=== PATIENT | female | born 1935 | race Caucasian/White ===

== ENCOUNTER 2017-08-20 16:30 | Inpatient (IN) | payer MEDICARE, OTHER ==
[~2017-08-20] VITALS: Ht 152.4 cm; Wt 85.0 kg
[~2017-08-20 16:30] MED LIST: ALBUTEROL INHALER; AMIODARONE HCL200 MG PO; ARED 2 PO; ASPIRIN81 M1 PO; CARVEDILOL12.5 MG PO; DIGOXIN250 MCG PO; FUROSEMIDE40 MG PO; HYDROCODON-ACE1 EA11 PO; HYDROCODON-ACE1 EAC4; KLOR-CON 88 MEQ PO; LACTULOSE20 GM/30 M PO; LEVEMIR 3M100 UNITS/ SQ; LEVOTHYROXINE50 MCG PO; LOSARTAN POTASS25 MG PO; MONTELUKAST SOD10 MG PO; NEXIUM; NYSTATIN TOP; RANITIDINE HCL150 MG PO; SINGULAIR10 MG PO; ULTRAM 50MG50 MG PO; VIT D PO; VOLTAREN; VOLTAREN GEL; WARFARIN SODIUM2 MG PO
[2017-08-20] MEDS ORDERED: ALBUTEROL/IPRATROPIUM 3 ML NEB NEB ONE (17:15)
[2017-08-20 17:18] LABS: BASOPHILS % 0.2 % (0.0-1.0); EOSINOPHILS % 0.1 % (0.0-6.0); HEMATOCRIT 40.4 % (34.2-44.1); HEMOGLOBIN 12.6 g/dL (12.0-16.0); INR 1.71; LYMPHOCYTES # (AUTO) 0.8 (1.0-3.2); LYMPHOCYTES % 10.2 % (18.0-39.1); MEAN CORPUSCULAR HEMOGLOBIN 30.7 pg (28-32); MEAN CORPUSCULAR HGB CONC 31.2 g/dL (31-35); MEAN CORPUSCULAR VOLUME 98.3 fL (81-99); MONOCYTES # (AUTO) 0.8 (0.2-0.8); MONOCYTES % 9.2 % (4.4-11.3); NEUTROPHILS # (AUTO) 6.6 (2.1-6.9); NEUTROPHILS % 79.9 % (38.7-80.0); PLATELET COUNT 96 x10e3/uL (140-360); RED BLOOD COUNT 4.11 x10e6/uL (3.6-5.1); RED CELL DISTRIBUTION WIDTH 13.4 % (11.7-14.4)
[2017-08-20 17:19] LABS: PARTIAL THROMBOPLASTIN TIME 30.5 seconds (23.8-35.5)
[2017-08-20 17:28] LABS: ALBUMIN 3.2 g/dL (3.5-5.0); ALBUMIN/GLOBULIN RATIO 0.7 (0.8-2.0); ANION GAP 15.1 mmol/L (8-16); CALCIUM 10.6 mg/dL (8.4-10.2); CREATININE, SERUM 1.22 mg/dL (0.57-1.11); POTASSIUM 4.1 mmol/L (3.5-5.1)
[2017-08-20 17:35] LABS: CREATINE KINASE MB 1.1 ng/mL (0.00-5.00); TROPONIN I 0.033 ng/mL (0-0.300)
[2017-08-20 18:23] LABS: BILIRUBIN,URINE 1+ (NEGATIVE); KETONES,URINE NEGATIVE (NEGATIVE); LEUKOCYTE ESTERASE ,URINE TRACE (NEGATIVE); NITRITE,URINE NEGATIVE (NEGATIVE); URINE UROBILINOGEN 8 mg/dL (0.2 - 1)
[2017-08-20 18:25] LABS: PROTEIN,URINE DIPSTICK 1+ (NEGATIVE)
[2017-08-20 18:26] LABS: CLARITY,URINE SL CLOUDY (CLEAR); COLOR,URINE YELLOW (YELLOW)
[2017-08-20 18:47] LABS: EPITHELIAL CELLS,URINE RARE /LPF; RBC,URINE 0-5 /HPF (0-5)
[2017-08-20] MEDS ORDERED: PRESERVISION A1 EACH PO (18:51)
[2017-08-20] MEDS ORDERED: D3 PO (18:51)
--- NOTE | 2017-08-20 18:59 | Diagnostic Imaging Report ---
Portable chest x-ray CPT code 36717 INDICATION: Altered level of consciousness COMPARISON: 09/25/2012 FINDINGS: Frontal view of the chest obtained at 1614 hours. The cardiac silhouette is enlarged and contains pacer/defibrillator wires. The heart is increased in size compared to previous exam. The hardware is stable in position. The aorta is ectatic with calcifications in the arch. The main pulmonary artery is enlarged. Intrapulmonary vasculature is prominent. The lungs demonstrate diffuse hyperinflation. No mass or infiltrate. The costophrenic angles are sharp. There is no pneumothorax. The osseous structures are intact and normal in morphology. IMPRESSION: 1. Increasing cardiomegaly and pacer/defibrillator. Pericardial effusion cannot be excluded. 2. Enlarged main pulmonary artery suggestive of pulmonary artery hypertension. This may account for the central pulmonary vascular congestion. 3. COPD. No acute pulmonary process. Signed by: Dr. Praveen Fong MD on 08/20/2017 6:55 PM
--- NOTE | 2017-08-20 19:11 | Diagnostic Imaging Report ---
Examination: CT BRAIN WITHOUT CONTRAST History:Confusion; altered mental status. Comparison studies:None Technique: Axial images were obtained from the skull base to the vertex. Coronal and sagittal images reconstructed from the axial data. Intravenous contrast: None Findings: Scalp: No abnormalities. Bones: No fractures, blastic or lytic lesions. Brain sulci: Appropriate for age. Ventricles: Normal in size and configuration. No hydrocephalus. Extra-axial space: No abnormalities. Parenchyma: There are mild confluent areas of hypoattenuation in the periventricular and subcortical white matter, nonspecific. No masses, hemorrhage, or acute cortical based vascular insults. Sellar/suprasellar region: No abnormalities. Craniocervical junction: Patent foramen magnum. No Chiari one malformation. Incidental findings: Chronic left maxillary sinusitis. Impression: 1. No acute intracranial abnormalities. 2. Mild chronic microvascular ischemic change. Signed by: Dr. Cass Bunn M.D. on 08/20/2017 7:07 PM
[2017-08-20] MEDS ORDERED: ONDANSETRON HCL INJ 2 MG/ML VIAL IV PRN (20:45)
[2017-08-20] MEDS ORDERED: ACETAMINOPHEN 325 MG TAB PO PRN (20:45)
[2017-08-20 22:00] VITALS: BP 129/80
[2017-08-20 23:02] VITALS: BP 129/80
[2017-08-21] VITALS: BP 126/67
[2017-08-21 04:00] VITALS: BP 122/68
[2017-08-21 06:27] LABS: BASOPHILS % 0.3 % (0.0-1.0); EOSINOPHILS % 0.5 % (0.0-6.0); HEMATOCRIT 38.2 % (34.2-44.1); HEMOGLOBIN 11.9 g/dL (12.0-16.0); LYMPHOCYTES # (AUTO) 1.3 (1.0-3.2); LYMPHOCYTES % 20.2 % (18.0-39.1); MEAN CORPUSCULAR HEMOGLOBIN 30.8 pg (28-32); MEAN CORPUSCULAR HGB CONC 31.2 g/dL (31-35); MONOCYTES # (AUTO) 0.7 (0.2-0.8); MONOCYTES % 11.4 % (4.4-11.3); NEUTROPHILS # (AUTO) 4.4 (2.1-6.9); NEUTROPHILS % 67.3 % (38.7-80.0); PLATELET COUNT 91 x10e3/uL (140-360); RED BLOOD COUNT 3.86 x10e6/uL (3.6-5.1); RED CELL DISTRIBUTION WIDTH 13.4 % (11.7-14.4)
[2017-08-21 07:11] LABS: CREATINE KINASE MB 1.2 ng/mL (0.00-5.00); TROPONIN I 0.037 ng/mL (0-0.300)
[2017-08-21 07:42] VITALS: BP 129/78
[2017-08-21 07:42] LABS: ALBUMIN/GLOBULIN RATIO 0.7 (0.8-2.0); ANION GAP 10.3 mmol/L (8-16); CALCIUM 10.6 mg/dL (8.4-10.2); CHOL/HDL RATIO 4.9 (3.0-3.6); CREATININE, SERUM 1.2 mg/dL (0.57-1.11); POTASSIUM 4.3 mmol/L (3.5-5.1)
[2017-08-21 11:45] VITALS: BP 139/79
[2017-08-21] MEDS ORDERED: DEXTROSE 50% SYRINGE 50 ML IV PRN (15:15)
[2017-08-21 15:20] LABS: CREATINE KINASE MB 1.3 ng/mL (0.00-5.00)
[2017-08-21 15:23] LABS: TROPONIN I 0.029 ng/mL (0-0.300)
--- NOTE | 2017-08-21 15:51 | History and Physical ---
CHIEF COMPLAINT: Ms. Mary is a very elderly 81-year-old woman known to us for many years, who presents to the emergency room with complaints of failure to thrive. HISTORY OF PRESENT ILLNESS: The patient reports that she has been unable to eat and drink and became worried about herself. She adds that her son had coronary bypass graft surgery recently, has not been able to help her. PAST MEDICAL HISTORY: Long and complex with ischemic cardiomyopathy. Last echocardiogram in our records December 26, 2016, showed EF 20% to 25%. She has an AICD in place with history of ventricular tachycardia. She had right-sided breast cancer in 1997, remote hysterectomy, glaucoma, sleep apnea, gastric ulcer, cirrhosis with hepatic encephalopathy, COPD, hyperparathyroidism. She has chronic renal insufficiency. PAST SURGICAL HISTORY: Previous laparoscopic cholecystectomy, right-sided lumpectomy for breast cancer, hysterectomy. AICD was placed in 2010, last interrogated in April 2017. HOME MEDICATIONS INCLUDE: Multivitamin. Levothyroxine 50 mcg daily. Carvedilol 12.5 mg b.i.d. Flovent inhaler. Furosemide 40 mg daily. Levemir FlexPen 40 units in the morning and 30 units in the evening. Nystatin. Warfarin 2 mg daily. PHYSICAL EXAMINATION: GENERAL: At this time shows an elderly obese white woman who is awake. Words are difficult to ascertain due to mumbling and perhaps some slight confusion. HEENT: Unremarkable except for poor dentition. NECK: Is thick. THORAX: Heart sounds S1 and S2 are equal and regular. There is a 2/6 systolic murmur. Defibrillator site is intact. ABDOMEN: Protuberant. EXTREMITIES: Show multiple contusions and bandaging. INITIAL LABORATORY STUDIES: Show troponins normal times 2. BUN 33, creatinine 1.2. INR 1.7. Chest x-ray shows cardiomegaly. CAT scan of the head shows sinusitis. EKG shows paced rhythm. Current serum ammonia is 88, which is normal in this laboratory. ASSESSMENT: 1. Congestive heart failure. 2. Renal insufficiency. 3. Failure to thrive. 4. Hepatic encephalopathy. PLAN: Will reevaluate and provide supportive care. She may need mcc or other management. Job#: [id number] EV
[2017-08-21] MEDS: CARVEDILOL 12.5 MG TAB PO SCH (17:38)
[2017-08-21] MEDS: INSULIN REGULAR, HUMAN 100 UNIT/1 ML 3ML VIAL SQ SCH ×2 (17:39→21:29)
[2017-08-21] MEDS: WARFARIN SOD 2 MG TAB PO SCH (17:39)
[2017-08-21 20:45] VITALS: BP 111/58
[2017-08-22] VITALS (8 sets, daily range): BP systolic 101–126; BP diastolic 52–66
[2017-08-22] MEDS: LEVOTHYROXINE SODIUM 50 MCG TAB PO SCH (05:31)
[2017-08-22 07:26] LABS: B-TYPE NATRIURETIC PEPTIDE2 1785.7 pg/mL (0-100)
[2017-08-22] MEDS: INSULIN REGULAR, HUMAN 100 UNIT/1 ML 3ML VIAL SQ SCH ×4 (07:30→20:55)
[2017-08-22 07:31] LABS: ANION GAP 11.7 mmol/L (8-16); CALCIUM 10.7 mg/dL (8.4-10.2); CREATININE, SERUM 1.56 mg/dL (0.57-1.11); POTASSIUM 4.7 mmol/L (3.5-5.1)
[2017-08-22] MEDS: FUROSEMIDE 40 MG TAB PO SCH (08:39)
[2017-08-22] MEDS: LACTULOSE SYRUP 20 GM/30 ML UDC PO SCH (08:39)
[2017-08-22] MEDS: CARVEDILOL 12.5 MG TAB PO SCH ×2 (08:39→16:31)
[2017-08-22] MEDS ORDERED: METOLAZONE 5 MG TAB PO ONE (10:00)
[2017-08-22] MEDS ORDERED: METOLAZONE 5 MG TAB PO SCH (13:30)
[2017-08-22] MEDS: WARFARIN SOD 2 MG TAB PO SCH (16:37)
[2017-08-22] MEDS ORDERED: RISPERIDONE 0.5 MG TAB PO ONE (20:30)
[2017-08-23] VITALS (7 sets, daily range): BP systolic 106–143; BP diastolic 58–72
[2017-08-23] MEDS: LEVOTHYROXINE SODIUM 50 MCG TAB PO SCH (06:28)
[2017-08-23] MEDS: INSULIN REGULAR, HUMAN 100 UNIT/1 ML 3ML VIAL SQ SCH ×4 (07:30→22:02)
[2017-08-23 08:09] LABS: ALBUMIN 2.8 g/dL (3.5-5.0); ALBUMIN/GLOBULIN RATIO 0.6 (0.8-2.0); ANION GAP 12.9 mmol/L (8-16); CALCIUM 10.5 mg/dL (8.4-10.2); CREATININE, SERUM 1.64 mg/dL (0.57-1.11); POTASSIUM 3.9 mmol/L (3.5-5.1)
[2017-08-23] MEDS: FUROSEMIDE 40 MG TAB PO SCH (09:53)
[2017-08-23] MEDS: CARVEDILOL 12.5 MG TAB PO SCH ×3 (09:53→22:01)
[2017-08-23] MEDS: LACTULOSE SYRUP 20 GM/30 ML UDC PO SCH (09:53)
--- NOTE | 2017-08-23 11:03 | Cardiology Report ---
DATE OF STUDY: ECHOCARDIOGRAM M-MODE: Top normal left atrial size. Left ventricular hypertrophy. Top normal left ventricular size. Diminished left ventricular contractility. Normal mitral and aortic valves. Pacemaker. No pericardial effusion. SECTOR SCAN: Normal chamber and wall dimensions. Borderline enlarged left atrium and left ventricle. Left ventricular hypertrophy. Diminished left ventricular contractility. Ejection fraction 20% to 25%. Mitral valve slightly sclerotic. Aortic valve is normal. Tricuspid valves are normal. There is minimal posterior pericardial effusion. Pacemaker is present. CARDIAC DOPPLER STUDY WITH COLOR: One plus pulmonic regurgitation. Trace tricuspid and mitral regurgitation. Trace aortic regurgitation. CONCLUSIONS 1. Borderline dilated left ventricle with left ventricular hypertrophy with ejection fraction in the range of 20% to 25%. 2. Trace mitral regurgitation with mildly enlarged left atrium. 3. Sclerosis of the mitral leaflets with trace mitral regurgitation. 4. Mild pulmonic regurgitation with trace tricuspid regurgitation with mild pulmonary hypertension. Pulmonary artery systolic pressure estimated at 41 mmHg. 5. Minimal posterior pericardial effusion. 6. Automatic implanted cardioverter defibrillator pacemaker present. Job#: [id number] NV
[2017-08-23] MEDS: TRIMETHOPRIM/SULFAMETHOXAZOLE 160-800 MG TAB PO SCH (14:08)
[2017-08-23] MEDS: WARFARIN SOD 2 MG TAB PO SCH (18:00)
[2017-08-24] VITALS (8 sets, daily range): BP systolic 103–129; BP diastolic 51–60
[2017-08-24] MEDS: LEVOTHYROXINE SODIUM 50 MCG TAB PO SCH (06:49)
[2017-08-24] MEDS: INSULIN REGULAR, HUMAN 100 UNIT/1 ML 3ML VIAL SQ SCH ×4 (07:30→21:49)
[2017-08-24] MEDS: FUROSEMIDE 40 MG TAB PO SCH (09:14)
[2017-08-24] MEDS: LACTULOSE SYRUP 20 GM/30 ML UDC PO SCH (09:14)
[2017-08-24] MEDS: TRIMETHOPRIM/SULFAMETHOXAZOLE 160-800 MG TAB PO SCH ×2 (09:14→21:48)
[2017-08-24] MEDS: CARVEDILOL 12.5 MG TAB PO SCH ×2 (09:15→21:49)
[2017-08-24] MEDS: WARFARIN SOD 2 MG TAB PO SCH (17:37)
[2017-08-24] MEDS ORDERED: MIDAZOLAM HCL 2 MG/2 ML VIAL ONE (19:01)
[2017-08-24] MEDS ORDERED: ETOMIDATE 2 MG/ML 10 ML INJ IV ONE (19:01)
[2017-08-25] VITALS (39 sets, daily range): BP systolic 55–128; BP diastolic 42–119
[2017-08-25] MEDS: LEVOTHYROXINE SODIUM 50 MCG TAB PO SCH (06:51)
[2017-08-25] MEDS: INSULIN REGULAR, HUMAN 100 UNIT/1 ML 3ML VIAL SQ SCH ×4 (07:30→21:00)
[2017-08-25] MEDS: CARVEDILOL 12.5 MG TAB PO SCH ×2 (09:00→21:15)
[2017-08-25] MEDS: TRIMETHOPRIM/SULFAMETHOXAZOLE 160-800 MG TAB PO SCH ×2 (09:00→21:15)
[2017-08-25] MEDS: LACTULOSE SYRUP 20 GM/30 ML UDC PO SCH (09:00)
[2017-08-25] MEDS ORDERED: METHYLPREDNISOLONE SOD SUCC 125 MG/2ML VIAL IV STA (14:29)
[2017-08-25] MEDS ORDERED: FUROSEMIDE INJ 10 MG/ML 4 ML VIAL ONE (14:33)
[2017-08-25] MEDS ORDERED: METHYLPREDNISOLONE SOD SUCC 125 MG/2ML VIAL ONE (14:33)
--- NOTE | 2017-08-25 14:40 | Discharge Summary ---
CLINICAL HISTORY: This is an 81-year-old white woman with multiple medical problems, admitted via the emergency room because of failure to thrive. The patient was admitted in my absence by Dr. Kash Hollins. Initially, there was concern that the patient may have urinary tract infection with urine growing E. coli and was covered with Bactrim; however, when we reviewed her urinalysis, there were no white cells, peripheral WBC in the blood were normal. She had no fever. It is possible that the E. coli may have been contaminant. The patient remained weak and underwent physical therapy, but did not participate very much. She was continued on her anticoagulants, Coumadin. INR was in the range of 1.7, PT of 21. Platelet count was 91, hemoglobin 11.9. BUN 41, creatinine 1.6. It was initially felt that she may have some congestive heart failure. She was given additional diuretics with negative fluid balance for couple of days; however, we did not want to excessively volume deplete her since her BUN and creatinine was already somewhat elevated. Her ejection fraction was in the range of 20 to 25%. She has AICD, which remained satisfactory. 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 The family was resistant to taking Risperdal, only one dose was given. Her ammonia level were checked 3 times, were all in the normal range. She was continued on lactulose. Neurology consultation was obtained with Dr. Chaney. CT scan of the head was negative. She has history of hiatal hernia. Chest x-ray did not show any aspiration. She was continued on anticoagulation with PT of 21 and INR 1.7. Her platelet count was 91. We did not want to excessively anticoagulate her. Dr. Croft participated in the care of this patient over the telephone and directed the patient to be transferred to [facility]. I talked to Dr. Croft over the phone as well. The family appears to be agreeable, although the patient has had a bad experience in the [facility] before, becoming very ill and showing up in my office. At the time of discharge, she appears to be in good condition and will follow with Dr. Croft in [facility]. DISCHARGE DIAGNOSES 1. 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 2. Status post automatic implantable cardioverter-defibrillator, functioning normally. 3. Anticoagulation with Coumadin with INR kept relatively low because of history of cirrhosis and thrombocytopenia. 4. Cirrhosis of the liver with hepatic encephalopathy, under control with all 3 ammonia levels normal. 5. Thrombocytopenia, platelet count 91. 6. Altered mental status probably due to abnormal sleep pattern. When the patient is awake, she is able to eat quite well. 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 8. Chronic kidney disease probably due to end-stage heart disease with BUN 41 and creatinine 1.6. 9. Failure to thrive. This patient will continue physical therapy at [facility]. Her flu test was negative during this hospitalization. CHRISTY WELDON MD Job#: [id number] VAS cc:Edwin Croft MD
[2017-08-25] MEDS ORDERED: FUROSEMIDE INJ 10 MG/ML 4 ML VIAL IV ONE (14:45)
--- NOTE | 2017-08-25 14:45 | Diagnostic Imaging Report ---
PROCEDURE: A single AP view of the chest. COMPARISON: 08/20/17 INDICATIONS: POST INTUBATION FINDINGS: Frontal image obtained at 1436 hrs. Lines/tubes: Endotracheal tube terminates about 4 cm above the rossi. Multiple pacer/defibrillator wires are stable. Lungs: Lung volumes are lower. reefer engineer obscures the right lateral costophrenic angle. Pulmonary vascular markings are prominent. There is mild left basilar atelectasis. Pleura: There is no pleural effusion or pneumothorax. Heart and mediastinum: The stable cardiomegaly and enlargement of the pulmonary arteries. Calcifications of the aortic arch are stable. Bones: Stable. IMPRESSION: Endotracheal tube as described above. Stable cardiac hardware, cardiomegaly, and pulmonary artery hypertension. Low lung volumes and left basilar atelectasis. Dictated by: Praveen Fong M.D. on 08/25/2017 at 14:54 Electronically approved by: Praveen Fong M.D. on 08/25/2017 at 14:54
[2017-08-25 15:20] LABS: ALBUMIN 2.8 g/dL (3.5-5.0); ALBUMIN/GLOBULIN RATIO 0.5 (0.8-2.0); ANION GAP 19.4 mmol/L (8-16); CALCIUM 10.4 mg/dL (8.4-10.2); CREATININE, SERUM 1.99 mg/dL (0.57-1.11); POTASSIUM 5.4 mmol/L (3.5-5.1)
[2017-08-25 15:25] LABS: INR 4.34
--- NOTE | 2017-08-25 15:25 | Diagnostic Imaging Report ---
EXAMINATION: Head CT HISTORY: Altered mental status and weakness COMPARISON: Head CT on 08/20/2017 TECHNIQUE: Multidetector axial images were obtained without contrast from the foramen magnum to the vertex . The images were reconstructed using brain and bone algorithms. Thin section brain images were reformatted into coronal and sagittal planes. Intravenous contrast: None. Motion/streaking artifact limits the evaluation of the skull base and posterior cranial fossa. FINDINGS: Parenchyma: 1. Unchanged mild chronic microvascular ischemic changes. 2. No mass or hemorrhage. No CT evidence of acute territorial vascular insult. Extra-axial spaces:No abnormal density. No extra-axial fluid collections Brain volume: Normal for age. Ventricles: No hydrocephalus or displacement. Arteries: No density suggestive of thrombus. Dural sinuses: No abnormal density. Extra-axial spaces: No abnormal density. Foramen magnum: No mass, Chiari malformation, or basilar invagination. Sella: No obvious mass. Paranasal/mastoid sinuses: Imaged portions unremarkable. Skull/Scalp: No lytic or blastic lesions. No fractures. IMPRESSION: No acute hemorrhage or cortical infarct. Stable mild chronic microvascular ischemic changes when compared to recent head CT on 08/20/2017 Signed by: Dr. Tiny Mauro M.D. on 08/25/2017 3:22 PM
[2017-08-25 15:29] LABS: PROTHROMBIN TIME 43.9 seconds (11.9-14.5)
[2017-08-25 15:30] LABS: HEMATOCRIT 40.4 % (34.2-44.1); HEMOGLOBIN 12.7 g/dL (12.0-16.0); LYMPHOCYTES # (AUTO) 0.4 (1.0-3.2); LYMPHOCYTES % 12.5 % (18.0-39.1); MEAN CORPUSCULAR HEMOGLOBIN 30.7 pg (28-32); MEAN CORPUSCULAR HGB CONC 31.4 g/dL (31-35); MEAN CORPUSCULAR VOLUME 97.6 fL (81-99); MONOCYTES # (AUTO) 0.1 (0.2-0.8); MONOCYTES % 3.1 % (4.4-11.3); NEUTROPHILS # (AUTO) 2.7 (2.1-6.9); NEUTROPHILS % 83.8 % (38.7-80.0); PLATELET COUNT 90 x10e3/uL (140-360); RED BLOOD COUNT 4.14 x10e6/uL (3.6-5.1); RED CELL DISTRIBUTION WIDTH 13.9 % (11.7-14.4)
[2017-08-25 15:31] LABS: PARTIAL THROMBOPLASTIN TIME 38.1 seconds (23.8-35.5)
[2017-08-25] MEDS ORDERED: PROPOFOL IV EMULSION 10MG/ML 100 ML ONE (15:31)
[2017-08-25 15:54] LABS: ABG HCO3 47 mmol/L (23-28); ABG PH 7.24 (7.31-7.41); ABG PO2 64 mmHg (80-105)
[2017-08-25 15:56] LABS: ABG PCO2 110 mmHg (41-51)
--- NOTE | 2017-08-25 16:46 | Operative Report ---
DATE OF PROCEDURE: PROCEDURE: Endotracheal intubation. MEDICATIONS: Etomidate 10 mg IV, Versed 2 mg. INDICATIONS: The patient had worsening responsiveness and a CO2 of [address] scan. PROCEDURE: The patient was placed in a supine position. She was initially ventilated with an Ambu bag and mask. She then received etomidate 10 mg IV. A 2.0 MAC blade was used to visualize the glottis. A 7.5 endotracheal tube was passed through the cords on the 1st attempt. There was good air movement bilaterally and good CO2 return. The patient's saturation remained above 90% throughout the procedure. The patient remained hemodynamically stable. COMPLICATIONS: None. X-ray is pending at the time of this dictation. Job#: [id number]
--- NOTE | 2017-08-25 16:57 | Consultation ---
DATE OF CONSULTATION: August 25, 2017 PULMONARY/CRITICAL CARE CONSULTATION REFERRING PHYSICIAN: Dr. Raoul Brothers. CHIEF COMPLAINT: Cardiogenic pulmonary edema; respiratory failure. HISTORY OF PRESENT ILLNESS: The patient is an 81-year-old woman. She has a long history of cardiac disease. She has a previously reported systolic cardiomyopathy with an ejection fraction of 20% and 25% in December of 2016. She also had an AICD placed at that time. The patient came to the hospital on the 20 of August with difficulty waking up and failure to thrive. She was subsequently treated for her cardiomyopathy. She was found to have some cirrhosis as well. She was evaluated by neurology today for worsening mental status. She was down in CT scan when she had more difficulty breathing and blood gas was done. Her carbon dioxide was noted to be 110 with pH of 7.24. She initially received BiPAP but did not respond well and required endotracheal intubation. PAST SURGICAL HISTORY: 1. Status post cholecystectomy. 2. Status post lumpectomy for breast cancer. 3. Status post hysterectomy. 4. Status post AICD. PAST MEDICAL HISTORY: 1. Ischemic cardiomyopathy. 2. Breast cancer. 3. Cirrhosis. 4. Vague history of COPD, although the exact details are not clear. ALLERGIES: THE PATIENT HAS NO KNOWN DRUG ALLERGIES. FAMILY HISTORY: The past family history is noncontributory. SOCIAL HISTORY: The patient is not a smoker. She is not an active drinker. She was staying in a nursing facility. REVIEW OF SYSTEMS: There is no reported fevers. The patient was apparently less responsive. She had no headache. She had no neck pain. She did not complain of chest pain. She did have some dyspnea and congestion. She had no abdominal pain, nausea or vomiting. She did not eat anything this morning prior to her CT scan. She had no leg edema. She had no focal neurological complaints. PHYSICAL EXAMINATION: VITAL SIGNS: Blood pressure is 118/67 and the pulse ox is 92% on 4 liters. She was afebrile. HEENT: Examination shows no facial swelling or erythema. Nasal mucosa is normal. The oropharynx is normal. LYMPHATIC: Examination shows no submandibular, cervical or supraclavicular adenopathy. NECK: Examination of neck shows no JVD or thyromegaly. There is no nuchal rigidity. CARDIAC: Exam reveals a regular rate and rhythm with normal S1 and S2. There are no murmurs or rubs. LUNGS: Reveals rhonchus breath sounds bilaterally. There is no wheezing. ABDOMEN: Is soft and nontender. There is no rebound or guarding. EXTREMITIES: Shows no leg edema or calf tenderness. There is no cyanosis or clubbing. NEUROLOGIC: Exam shows no focal abnormalities. SKIN: Examination shows no rashes. LABORATORY DATA: The last blood counts of the are within normal limits. The blood sugars have been normal. The last creatinine was 1.6 on the with normal electrolytes. Her PT is 21 and her PTT is 42. She has a negative influenza swab. Chest x-ray from the showed cardiomegaly with some mild cephalization and a pacemaker. Today's x-ray is still pending. IMPRESSION: 1. Pmysy-ce-tozdvhx respiratory failure. 2. Xbgai-wb-xctblge systolic heart failure. 3. Chronic obstructive pulmonary disease. 4. Cirrhosis. 5. Metabolic encephalopathy. 6. Thyroid disease. PLAN: The patient has received additional Lasix by Dr. Brothers of cardiology. The patient will receive Solu-Medrol along with bronchodilators. She has been intubated and will be on an assist-control mode of ventilation. Will continue the warfarin for now and recheck the INR. The patient will be pancultured. DVT prophylaxis. Entral feedings. Job#: [id number] MTDD
[2017-08-25] MEDS ORDERED: PROPOFOL IV EMULSION 10MG/ML 100 ML IV PRN (17:00)
[2017-08-26] VITALS (70 sets, daily range): BP systolic 81–134; BP diastolic 35–103
[2017-08-26] MEDS: INSULIN REGULAR, HUMAN 100 UNIT/1 ML 3ML VIAL SQ SCH ×4 (00:11→18:08)
[2017-08-26 05:38] LABS: HEMATOCRIT 36.9 % (34.2-44.1); LYMPHOCYTES # (AUTO) 0.6 (1.0-3.2); LYMPHOCYTES % 9.8 % (18.0-39.1); MEAN CORPUSCULAR HEMOGLOBIN 30.5 pg (28-32); MEAN CORPUSCULAR HGB CONC 32.5 g/dL (31-35); MEAN CORPUSCULAR VOLUME 93.7 fL (81-99); MONOCYTES # (AUTO) 0.4 (0.2-0.8); MONOCYTES % 6.9 % (4.4-11.3); NEUTROPHILS # (AUTO) 4.9 (2.1-6.9); NEUTROPHILS % 82.8 % (38.7-80.0); PLATELET COUNT 109 x10e3/uL (140-360); RED BLOOD COUNT 3.94 x10e6/uL (3.6-5.1); RED CELL DISTRIBUTION WIDTH 13.2 % (11.7-14.4)
[2017-08-26] MEDS: LEVOTHYROXINE SODIUM 50 MCG TAB PO SCH (05:40)
[2017-08-26 06:05] LABS: ANION GAP 17.8 mmol/L (8-16); CALCIUM 10.2 mg/dL (8.4-10.2); CREATININE, SERUM 2.37 mg/dL (0.57-1.11); POTASSIUM 3.8 mmol/L (3.5-5.1)
[2017-08-26 06:30] LABS: INR 6.97
--- NOTE | 2017-08-26 06:58 | Diagnostic Imaging Report ---
EXAMINATION: CHEST SINGLE (PORTABLE) INDICATION: Intubated COMPARISON: 08/25/2017 FINDINGS: TUBES and LINES: Left-sided AICD is intact. Endotracheal tube appears at the proximal trachea. Interval placement of NG tube with tip overlying the left upper quadrant. LUNGS: Lungs are not well inflated. There are bibasilar atelectasis. There is mild prominence of the central pulmonary vasculature, consistent with pulmonary venous congestion. PLEURA: No pleural effusion or pneumothorax. HEART AND MEDIASTINUM: Cardiac size is moderately enlarged. There are atherosclerotic calcifications within the aorta. Pulmonary artery appears prominent BONES AND SOFT TISSUES: No acute osseous lesion. Soft tissues are unremarkable. UPPER ABDOMEN: No free air under the diaphragm. IMPRESSION: 1. No acute thoracic abnormality. 2. Stable chest. Signed by: Dr. Harley Porras M.D. on 08/26/2017 6:54 AM
[2017-08-26] MEDS: CARVEDILOL 12.5 MG TAB PO SCH ×2 (09:28→21:00)
[2017-08-26] MEDS: METHYLPREDNISOLONE SOD SUCC 40 MG/ML VIAL IV SCH ×2 (09:28→21:47)
[2017-08-26] MEDS: LACTULOSE SYRUP 20 GM/30 ML UDC PO SCH (09:28)
[2017-08-26] MEDS: TRIMETHOPRIM/SULFAMETHOXAZOLE 160-800 MG TAB PO SCH (09:28)
[2017-08-26 12:08] LABS: ABG PCO2 59 mmHg (41-51); ABG PH 7.47 (7.31-7.41); ABG PO2 104 mmHg (80-105)
[2017-08-26 12:09] LABS: ABG HCO3 44 mmol/L (23-28)
[2017-08-26] MEDS ORDERED: PHYTONADIONE 10 MG/ML AMP SQ ONE (13:45)
[2017-08-26] MEDS: FUROSEMIDE 40 MG TAB PO SCH (15:10)
[2017-08-26 16:22] LABS: ABG HCO3 47 mmol/L (23-28); ABG PCO2 65 mmHg (41-51); ABG PH 7.46 (7.31-7.41); ABG PO2 160 mmHg (80-105)
[2017-08-26] MEDS ORDERED: ACETAZOLAMIDE SODIUM 500 MG/VIAL IV ONE (16:45)
[2017-08-26] MEDS ORDERED: WATER STERILE 10 ML VIAL INJ PRN (17:00)
[2017-08-27 00:15] VITALS: BP 123/63
[2017-08-27] MEDS: INSULIN REGULAR, HUMAN 100 UNIT/1 ML 3ML VIAL SQ SCH ×4 (00:50→18:54)
[2017-08-27 05:35] VITALS: BP 115/79
[2017-08-27] MEDS: LEVOTHYROXINE SODIUM 50 MCG TAB PO SCH (06:48)
--- NOTE | 2017-08-27 06:55 | Diagnostic Imaging Report ---
EXAMINATION: CHEST SINGLE (PORTABLE) INDICATION: Respiratory failure COMPARISON: 08/26/2017 FINDINGS: TUBES and LINES: NG tube is present. Left-sided ICD device in good position LUNGS: Lungs are not well inflated. There are bibasilar atelectasis. There is mild prominence of the central pulmonary vasculature, consistent with pulmonary venous congestion. PLEURA: No pleural effusion or pneumothorax. HEART AND MEDIASTINUM: Cardiac size is moderately enlarged. There are atherosclerotic calcifications within the aorta. BONES AND SOFT TISSUES: No acute osseous lesion. Soft tissues are unremarkable. UPPER ABDOMEN: No free air under the diaphragm. IMPRESSION: No acute thoracic abnormality. Signed by: Dr. Harley Porras M.D. on 08/27/2017 6:52 AM
[2017-08-27 07:37] LABS: BASOPHILS % 0.2 % (0.0-1.0); HEMATOCRIT 36.8 % (34.2-44.1); HEMOGLOBIN 11.8 g/dL (12.0-16.0); LYMPHOCYTES # (AUTO) 0.5 (1.0-3.2); MEAN CORPUSCULAR HEMOGLOBIN 30.5 pg (28-32); MEAN CORPUSCULAR HGB CONC 32.1 g/dL (31-35); MEAN CORPUSCULAR VOLUME 95.1 fL (81-99); MONOCYTES # (AUTO) 0.3 (0.2-0.8); NEUTROPHILS % 86.1 % (38.7-80.0); PLATELET COUNT 118 x10e3/uL (140-360); RED BLOOD COUNT 3.87 x10e6/uL (3.6-5.1); RED CELL DISTRIBUTION WIDTH 13.7 % (11.7-14.4)
[2017-08-27 08:17] LABS: ALBUMIN 2.6 g/dL (3.5-5.0); ALBUMIN/GLOBULIN RATIO 0.6 (0.8-2.0); ANION GAP 13.6 mmol/L (8-16); CALCIUM 10.5 mg/dL (8.4-10.2); CREATININE, SERUM 2.42 mg/dL (0.57-1.11); POTASSIUM 3.6 mmol/L (3.5-5.1)
[2017-08-27 08:37] VITALS: BP 128/86
[2017-08-27 09:34] LABS: INR 4.4
--- NOTE | 2017-08-27 09:34 | Progress Note ---
DATE: August 26, 2017 PULMONARY/CRITICAL CARE PROGRESS NOTE The patient was placed on pressor support of 8 and CPAP of 3 this morning. She tolerated this well with tidal volumes of 350-400 mL and a respiratory rate of 13-18. She was subsequently extubated and placed on BiPAP. She is now awake and answering questions. Her INR was 6 and she is scheduled to receive some vitamin K. PHYSICAL EXAMINATION VITAL SIGNS: Blood pressure 123/66, respiratory rate 18. She is on BiPAP at 16/8 and has a 100% saturation. HEENT: She has a nasogastric tube in place. Otherwise normal. LYMPHATICS: No submandibular, cervical or supraclavicular adenopathy. CARDIAC EXAM: Regular rate and rhythm with normal S1 and S2. LUNGS: Auscultation of the lungs reveals decreased breath sounds at the bases. There is no wheezing. ABDOMEN: Soft and nontender. There is no rebound or guarding. EXTREMITIES: No leg edema or calf tenderness. No cyanosis or clubbing. SKIN: No rashes. NEUROLOGIC: Shows the patient to be arousable and following commands. LABORATORY DATA: White blood cell count is 5.9 and hemoglobin 12. The platelet count is 109,000. BUN to creatinine ratio is 71 to 2.37. Other electrolytes are within normal limits. Chest x-ray shows no active disease. IMPRESSION 1. Zktgd-fk-ozglyvu hypercapnic respiratory failure. 2. Gzjme-oa-myyemgv systolic cardiomyopathy and congestive heart failure. 3. Baseline systolic cardiomyopathy with an ejection fraction of 20% to 25% and an AICD. 4. Chronic obstructive pulmonary disease. 5. Cirrhosis with history of episode of hepatic encephalopathy. 6. Diabetes. PLAN: 1. The patient has been extubated and will be continued on BiPAP. We will repeat and ABG at 5 p.m. 2. The patient has received vitamin K; will continue to monitor the INR. 3. Continue current cardiac regimen. 4. Hold sedatives. 5. Lactulose. 6. Monitor renal function. 7. Discussed the case with the nursing staff and with Dr. Brothers. 8. Discussed the case with the family. 9. I rounded on the patient twice today, once at 8 a.m. and once at 1:30 p.m. I spent more than 35 minutes in direct critical care time. Job#: [id number] TAMIE
[2017-08-27 09:39] LABS: PROTHROMBIN TIME 44.4 seconds (11.9-14.5)
[2017-08-27] MEDS: METHYLPREDNISOLONE SOD SUCC 40 MG/ML VIAL IV SCH ×2 (10:03→22:16)
[2017-08-27 10:15] VITALS: BP 127/74
[2017-08-27] MEDS: FUROSEMIDE 40 MG TAB PO SCH (10:18)
[2017-08-27] MEDS: LACTULOSE SYRUP 20 GM/30 ML UDC PO SCH (10:18)
[2017-08-27] MEDS: CARVEDILOL 12.5 MG TAB PO SCH ×2 (10:18→21:00)
[2017-08-27] MEDS ORDERED: SODIUM CHLORIDE 0.45% 1,000 ML IV SCH (16:45)
--- NOTE | 2017-08-27 19:24 | Consultation ---
DATE OF CONSULTATION: August 25, 2017 at 1 p.m. NEUROLOGICAL CONSULTATION REASON FOR CONSULTATION: Altered mental status. This is an 81-year-old female who was brought to the hospital because of confusion, generalized weakness and the patient became less responsive, which is the reason for which neurological consultation has been requested. PAST MEDICAL HISTORY: She has history of ischemic cardiomyopathy, ventricular tachycardia, hepatic encephalopathy, COPD, AICD placed in 2010 and also has history of breast cancer. PAST SURGICAL HISTORY: She has had cholecystectomy, lumpectomy of the breast, status post hysterectomy, status post AICD. REVIEW OF SYSTEMS: Unable to perform because of the mental status. PHYSICAL EXAMINATION VITAL SIGNS: Blood pressure 109/58, pulse 80, temperature 98.3. LUNGS: Clear. HEART: Regular sinus rhythm. ABDOMEN: Soft. No organomegaly. MUSCULOSKELETAL: Lower extremities with no edema and no cyanosis, no clubbing. NEUROLOGIC: The examination is performed in front of the family. The patient is rather lethargic, does not follow verbal commands. . She is able to follow simple commands like squeezing one of my hands. Moving forearms, seems the right arm is a little weaker in comparison with the left. Pupils are small, sluggish reaction. Extraocular movements were full. Plantar stimulation down bilaterally. CT scan of the brain without contrast on admission was negative. LABORATORY DATA: Has been reviewed. BUN is elevated. Creatinine elevated. IMPRESSION 1. Unresponsiveness, etiology probably metabolic type. 2. Questionable weakness of the right side. 3. Fair ischemic cardiomyopathy. 4. Kidney insufficiency. RECOMMENDATIONS: CT scan of the brain and blood gases. Will follow closely. The family has been explained about my findings. Following blood gases and a CAT scan, we will discuss with them again. Job#: [id number]
[2017-08-27 20:00] VITALS: BP 109/65
[2017-08-27 20:45] VITALS: BP 109/65
[2017-08-28] VITALS: BP 105/68
[2017-08-28 04:00] VITALS: BP 111/67
[2017-08-28] MEDS: LEVOTHYROXINE SODIUM 50 MCG TAB PO SCH (06:03)
[2017-08-28 06:51] LABS: HEMOGLOBIN 11.9 g/dL (12.0-16.0); LYMPHOCYTES # (AUTO) 0.6 (1.0-3.2); LYMPHOCYTES % 8.6 % (18.0-39.1); MEAN CORPUSCULAR HEMOGLOBIN 30.3 pg (28-32); MEAN CORPUSCULAR HGB CONC 31.3 g/dL (31-35); MEAN CORPUSCULAR VOLUME 96.7 fL (81-99); MONOCYTES # (AUTO) 0.2 (0.2-0.8); MONOCYTES % 3.2 % (4.4-11.3); NEUTROPHILS # (AUTO) 5.7 (2.1-6.9); NEUTROPHILS % 87.6 % (38.7-80.0); PLATELET COUNT 116 x10e3/uL (140-360); RED BLOOD COUNT 3.93 x10e6/uL (3.6-5.1); RED CELL DISTRIBUTION WIDTH 13.6 % (11.7-14.4)
--- NOTE | 2017-08-28 07:02 | Diagnostic Imaging Report ---
EXAMINATION: CHEST SINGLE (PORTABLE) INDICATION: Intubation COMPARISON: 08/27/2017 FINDINGS: TUBES and LINES: AICD is intact. LUNGS: Lungs are not well inflated. There are bibasilar atelectasis. There is mild prominence of the central pulmonary vasculature, consistent with pulmonary venous congestion. PLEURA: No pleural effusion or pneumothorax. HEART AND MEDIASTINUM: Cardiac size is moderately enlarged. There are atherosclerotic calcifications within the aorta. BONES AND SOFT TISSUES: No acute osseous lesion. Soft tissues are unremarkable. UPPER ABDOMEN: No free air under the diaphragm. IMPRESSION: Cardiomegaly without decompensation Signed by: Dr. Harley Porras M.D. on 08/28/2017 6:59 AM
[2017-08-28 07:10] LABS: ALBUMIN 2.6 g/dL (3.5-5.0); ALBUMIN/GLOBULIN RATIO 0.6 (0.8-2.0); ANION GAP 15.3 mmol/L (8-16); CALCIUM 10.9 mg/dL (8.4-10.2); CREATININE, SERUM 2.14 mg/dL (0.57-1.11); POTASSIUM 4.3 mmol/L (3.5-5.1)
[2017-08-28 07:45] LABS: LYMPHOCYTES % (MANUAL) 2 % (19-48); MONOCYTES % (MANUAL) 1 % (3.4-9.0); NEUTROPHILS % (MANUAL) 97 % (40-74)
[2017-08-28 07:46] LABS: PLATELET ESTIMATE ADEQUATE; PLATELET MORPHOLOGY COMMENT NORMAL; RBC MORPHOLOGY COMMENT NORMAL
[2017-08-28 07:54] VITALS: BP 112/60
[2017-08-28 08:56] LABS: INR 1.76; PROTHROMBIN TIME 21.5 seconds (11.9-14.5)
[2017-08-28] MEDS: FUROSEMIDE 40 MG TAB PO SCH (09:00)
[2017-08-28] MEDS: LACTULOSE SYRUP 20 GM/30 ML UDC PO SCH (09:30)
[2017-08-28] MEDS: CARVEDILOL 12.5 MG TAB PO SCH ×2 (09:30→21:00)
[2017-08-28] MEDS: METHYLPREDNISOLONE SOD SUCC 40 MG/ML VIAL IV SCH ×2 (09:30→21:42)
[2017-08-28] MEDS: INSULIN REGULAR, HUMAN 100 UNIT/1 ML 3ML VIAL SQ SCH ×4 (09:50→21:39)
[2017-08-28 11:30] VITALS: BP 105/58
[2017-08-28] MEDS ORDERED: ACETAZOLAMIDE 500 MG CAP PO ONE (11:30)
[2017-08-28 15:13] LABS: ABG PCO2 69 mmHg (41-51); ABG PH 7.42 (7.31-7.41); ABG PO2 44 mmHg (80-105)
[2017-08-28 15:14] LABS: ABG HCO3 44 mmol/L (23-28)
[2017-08-28 15:30] VITALS: BP 106/68
[2017-08-28] MEDS ORDERED: WARFARIN SOD 2 MG TAB PO SCH (17:00)
[2017-08-28 19:00] VITALS: BP 102/63
--- NOTE | 2017-08-28 20:47 | Discharge Summary ---
UPDATE DISCHARGE SUMMARY CLINICAL HISTORY: This is an 81-year-old white woman admitted in my absence by Dr. Kash Hollins because of failure to thrive. Please refer to my previous dictation concerning this patient's hospitalization. At the time of her admission her urinalysis and culture showed E. coli She was started on Bactrim. INR initially was 1.7 but subsequently went up to 6.7 requiring 10 mg of subcutaneous vitamin K before coming down to 1.7 again. Her Coumadin was resumed at the same dose. Bactrim was discontinued. Urinalysis showed no evidence of white cells in the urine. She had persistent drowsiness. Blood gas showed pH 7.24, pCO2 110, pO2 was 64. She required transient intubation. Before extubating her subsequent blood gas on room air showed pH of 7.42, pCO2 of 9, pO2 of 144. However, with 4 liters nasal cannula, pH of 7.39, pCO2 of 72 with pO2 in the 70s. Dr. Zhen Rendon saw the patient and felt the patient was stable to be transferred to a care home facility. Family is anxious for her to be transferred. She is going to [place] in [place]. During this hospitalization, the patient was seen by Dr. Rishabh Chaney who felt the altered mental status was due to metabolic in origin. There is some concern about weakness on the right side. However, repeat CT scan of the head was negative with no evidence of hemorrhage. DISCHARGE DIAGNOSES: 1. 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 2. Respiratory failure with history of cigarette smoking; however, only for 15 years and she has not smoked for 45 years. It is also possible that she may have [employer] etiology of respiratory failure although she is not on any narcotics. 3. Compensated congestive heart failure with clear lungs on chest x-ray. 4. Excessive anticoagulation due to combination of Bactrim and Coumadin, returning INR back to 1.7. 5. History of cirrhosis of the liver with hepatic encephalopathy, but with ammonia level in normal range times 3. This may have exacerbated the elevated INR. 6. Thrombocytopenia with platelet count 91,000 7. Hospital psychosis due to aged 8. Chronic kidney disease exacerbated by end-stage congestive heart failure. BUN 41, creatinine 1.6. This patient has been followed by Dr. Wong who had arrangements for her to be followed at [facility] rather than [facility] here in [place]. CHRISTY WELDON MD Job#: [id number] GH cc:KEN WONG MD cc:ZHEN RENDON M.D.
[2017-08-28 23:49] LABS: ABG PH 7.38 (7.31-7.41)
[2017-08-29 00:01] VITALS: BP 110/61
[2017-08-29 04:42] VITALS: BP 92/75
[2017-08-29] MEDS: LEVOTHYROXINE SODIUM 50 MCG TAB PO SCH (05:10)
[2017-08-29 06:10] LABS: INR 1.36; PROTHROMBIN TIME 17.5 seconds (11.9-14.5)
[2017-08-29 06:21] LABS: ALBUMIN 2.6 g/dL (3.5-5.0); ALBUMIN/GLOBULIN RATIO 0.6 (0.8-2.0); CALCIUM 11.3 mg/dL (8.4-10.2); CREATININE, SERUM 1.85 mg/dL (0.57-1.11)
[2017-08-29 07:30] VITALS: BP 122/62
[2017-08-29] MEDS: LACTULOSE SYRUP 20 GM/30 ML UDC PO SCH (08:32)
[2017-08-29] MEDS: CARVEDILOL 12.5 MG TAB PO SCH (08:32)
[2017-08-29] MEDS: INSULIN REGULAR, HUMAN 100 UNIT/1 ML 3ML VIAL SQ SCH ×2 (08:32→11:40)
[2017-08-29] MEDS: METHYLPREDNISOLONE SOD SUCC 40 MG/ML VIAL IV SCH (08:32)
[2017-08-29] MEDS ORDERED: ACETAZOLAMIDE 250 MG TAB PO SCH (11:00)
[2017-08-29 11:42] VITALS: BP 113/70
[2017-08-29 12:00] VITALS: BP 113/70
[2017-08-30] MEDS ORDERED: FUROSEMIDE 40 MG TAB PO SCH (09:00)
== END 2017-08-29 14:57 | DRG 291 ==
LOC: ER 16:30 → ERHOLD 20:56 → IMCU 21:23 → OBSVTOIN 08-23 11:45 → MED/SURG 08-23 14:50 → ICU 08-25 15:52 → IMCU 08-26 19:49
PROVIDERS: ADMIT Internal Medicine Cardiovascular Disease; ATTEND Internal Medicine Cardiovascular Disease
PROC: 0BH17EZ Insertion of Endotracheal Airway into Trachea, Via Natural or Artificial Opening (ICD-10-PCS; principal; 2017-08-25)
PROC: 5A1935Z Respiratory Ventilation, Less than 24 Consecutive Hours (ICD-10-PCS; 2017-08-25)
PROC: 5A09357 Assistance with Respiratory Ventilation, Less than 24 Consecutive Hours, Continuous Positive Airway Pressure (ICD-10-PCS; 2017-08-26)
DX: I13.0 Hypertensive heart and chronic kidney disease with heart failure and stage 1 through stage 4 chronic kidney disease, or unspecified chronic kidney disease (principal); J96.21 Acute and chronic respiratory failure with hypoxia; G93.41 Metabolic encephalopathy; N17.9 Acute kidney failure, unspecified; K76.81 Hepatopulmonary syndrome; I50.23 Acute on chronic systolic (congestive) heart failure; F23 Brief psychotic disorder; N18.9 Chronic kidney disease, unspecified; Z72.0 Tobacco use; R62.7 Adult failure to thrive; K72.90 Hepatic failure, unspecified without coma; J44.9 Chronic obstructive pulmonary disease, unspecified; I25.5 Ischemic cardiomyopathy; K74.60 Unspecified cirrhosis of liver; Z95.810 Presence of automatic (implantable) cardiac defibrillator; Z87.891 Personal history of nicotine dependence; R79.1 Abnormal coagulation profile; Z79.01 Long term (current) use of anticoagulants; T37.0X5A Adverse effect of sulfonamides, initial encounter; Y92.230 Patient room in hospital as the place of occurrence of the external cause; E66.9 Obesity, unspecified; Z68.36 Body mass index [BMI] 36.0-36.9, adult; E11.22 Type 2 diabetes mellitus with diabetic chronic kidney disease; Z85.3 Personal history of malignant neoplasm of breast; I25.2 Old myocardial infarction; J45.909 Unspecified asthma, uncomplicated; G47.30 Sleep apnea, unspecified; I50.84 End stage heart failure
CPT/HCPCS: 36415; 36600; 70450; 71010; 80048; 80053; 80061; 81001; 82140; 82550; 82553; 82805; 82948; 83880; 83970; 84484; 85025; 85610; 85730; 87040; 87086; 87186; 87400; 93005; 93306; 94002; 94003; 94660; 95822; 96372; 96376; 97139; 99285; G0378; J1940; J2250; J2920; J2930; J3430